=== PATIENT | female | born 1950 | race Caucasian/White ===

== ENCOUNTER 2017-02-17 15:22 | Emergency (ER) | payer MEDICARE, OTHER ==
--- NOTE | 2017-02-18 09:39 | NUR ---
SWS made a follow-up phone call to pt due to recent ER visit. Spoke with pt. Pt states she has an appt with Dr. Sanchez at [facility] tomorrow. Pt states she has transportation. Pt has insurance. Deny any needs at this time.
--- NOTE | 2017-03-01 07:42 | ER ---
ADMIT: 02/17/2017 RM/LOC: ER [facility] MR#: [id number] [address] GAYATHRI MENDOZA [address] [place] [address] Emergency Room Report SEX: F AGE: 66 : 1950 DATE: 02/17/2017 TIME: 1522 hours. Please refer to my T-sheet for complete H and P. HISTORY OF PRESENT ILLNESS: Briefly, the patient is a 66-year-old, who comes in with chest pain, left-sided, it has been there for six days wax and wanes, but it has been constant, it can be at any time, it is sharp at times shooting to her back. She does feel sweaty, very anxious, nothing improves it, nothing makes it worse. She has a known history of congestive heart failure, cardiomyopathy, COPD, DVT, and PE. She is anticoagulated. She also has a history of fibromyalgia. PHYSICAL EXAMINATION: VITAL SIGNS: Blood pressure 141/69, her pulse is 85, respiratory rate 16, temp 98.6, saturating at 97%. GENERAL: No acute distress. HEENT: Grossly normal. LUNGS: Clear. HEART: Regular. ABDOMEN: Soft. SKIN: No rash. EMERGENCY DEPARTMENT COURSE: EKG was sinus rhythm, rate 89, no changes. CBC was normal except platelets 119. Chemistries normal except glucose 138. Troponin was negative. INR was 2.08. Chest x-ray was negative. I gave her Dilaudid 1 mg IM, she felt improved. I talked to Dr. Darrin Sanchez, he will follow her up in the hospital. ASSESSMENT: 1. Atypical chest pain. 2. Fibromyalgia. 3. Chronic pain. PLAN: Continue current care. Follow up with Dr. Sanchez in 2 to 3 days. Return if worse. Yousuf Grimaldo MD/ terence JOB #: [id number] CC: Yousuf Grimaldo MD, Attending Physician Darrin Sanchez MD, Family Physician
== END 2017-02-17 16:45 | disposition home or self-care (01) ==
LOC: ER 15:22
DX: R07.89 Other chest pain (principal); M79.7 Fibromyalgia; G89.29 Other chronic pain; I10 Essential (primary) hypertension; K21.9 Gastro-esophageal reflux disease without esophagitis; J44.9 Chronic obstructive pulmonary disease, unspecified; G43.909 Migraine, unspecified, not intractable, without status migrainosus; Z86.718 Personal history of other venous thrombosis and embolism; Z86.711 Personal history of pulmonary embolism

== ENCOUNTER 2017-02-21 14:04 | Emergency (ER) | payer MEDICARE, OTHER ==
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
== END 2017-02-21 15:40 | disposition home or self-care (01) ==
LOC: ER 14:04
DX: S40.022A Contusion of left upper arm, initial encounter (principal); S40.021A Contusion of right upper arm, initial encounter; I10 Essential (primary) hypertension; Z86.718 Personal history of other venous thrombosis and embolism; Z88.0 Allergy status to penicillin; Z88.8 Allergy status to other drugs, medicaments and biological substances; Z79.01 Long term (current) use of anticoagulants; Z79.899 Other long term (current) drug therapy; Y09 Assault by unspecified means; Y92.009 Unspecified place in unspecified non-institutional (private) residence as the place of occurrence of the external cause